=== PATIENT | male | born 1965 | race Two or more races ===

== ENCOUNTER 2019-04-03 03:15 | Emergency (ER) | payer SELFPAY ==
[~2019-04-03] VITALS: Ht 175.3 cm; Wt 77.1 kg
[~2019-04-03 03:15] MED LIST: DICY20TA3 PO; ONDA4TAB12 PO; PANT20TA2 PO
[2019-04-03 03:52] LABS: BASO # 0.1 x10^3/uL (0.0-0.2); BASO % 1 % (0-3); EOS # 0.1 x10^3/uL (0.0-0.7); EOS % 1 % (0-3); HEMATOCRIT 50.3 % (39.0-53.0); HEMOGLOBIN 17.2 g/dL (13.0-17.5); LYMPH # 2.3 x10^3/uL (1.0-4.8); LYMPH % 16 % (24-48); MEAN CORPUSCULAR HEMOGLOBIN 32 pg (25-35); MEAN CORPUSCULAR HGB CONC 34 g/dL (31-37); MEAN CORPUSCULAR VOLUME 93 fL (79-100); MONO % 8 % (0-9); NEUT # 10.2 x10^3uL (1.8-7.7); NEUT % 75 % (31-73); PLATELET COUNT 479 x10^3/uL (140-400); RED CELL DISTRIBUTION WIDTH 13.6 % (11.5-14.5); WHITE BLOOD COUNT 13.7 x10^3/uL (4.0-11.0)
[2019-04-03] MEDS ORDERED: FAMOTIDINE 20 MG/2 ML VIAL IVP ONE (04:00)
[2019-04-03] MEDS ORDERED: IV NORMAL SALINE 1000ML BAG 1,000 ML IV ONE (04:00)
[2019-04-03] MEDS ORDERED: LIDO:MAALOX 1:1 20 ML SINGLE DOSE. PO ONE (04:00)
[2019-04-03] MEDS ORDERED: ONDANSETRON PF 4 MG/2 ML VIAL. IV ONE (04:00)
[2019-04-03 04:07] LABS: CALCIUM 9.6 mg/dL (8.5-10.1); CREATININE 1.1 mg/dL (0.7-1.3); POTASSIUM 3.9 mmol/L (3.5-5.1)
[2019-04-03 04:09] LABS: ALBUMIN 4.3 g/dL (3.4-5.0); ALBUMIN/GLOBULIN RATIO 1.1 (1.0-1.7); TOTAL BILIRUBIN 1.1 mg/dL (0.2-1.0); TOTAL PROTEIN 8.3 g/dL (6.4-8.2)
--- NOTE | 2019-04-03 05:07 | PHYS DOC ---
Past Medical History Past Medical History: Gallstones (HUGH LUNSFORD DO) Past Surgical History: Appendectomy, Cholecystectomy (HUGH LUNSFORD DO) Alcohol Use: Occasionally Drug Use: Marijuana (HUGH LUNSFORD DO) Adult General Chief Complaint Chief Complaint: ABDOMINAL PAIN HPI HPI Patient is a 53 year old male who presents with epigastric abdominal pain with nausea, diarrhea, and intermittent diarrhea for 2 days. The patient admits to similar symptoms 2 weeks ago. In addition, he has experienced these symptoms on and off since his cholecystectomy in October. Denies fever/chills. Denies known trauma. Denies known sick contacts. (HUGH LUNSFORD DO) Review of Systems Review of Systems Constitutional: Denies fever or chills Eyes: Denies redness or eye pain HENT: Denies nasal congestion or sore throat Respiratory: Denies cough or shortness of breath Cardiovascular: Denies chest pain or palpitations GI: Reports epigastric abdominal pain and reports diarrhea'; denies vomiting : Denies dysuria or hematuria Musculoskeletal: Denies back pain or joint pain Integument: Denies rash or skin lesions Neurologic: Denies headache, focal weakness or sensory changes Complete systems were reviewed and found to be within normal limits, except as documented in this note. (HUGH LUNSFORD DO) Current Medications Current Medications Current Medications Medications (Trade) Dose Ordered Sig/Sandhya Start Time Stop Time Status Last Admin Dose Admin Famotidine (Pepcid Vial) 20 mg 1X ONCE 04/03/19 04:00 04/03/19 04:01 DC 04/03/19 04:39 20 MG Fentanyl Citrate (Fentanyl 2ml Vial) 50 mcg 1X ONCE 04/03/19 06:30 04/03/19 06:31 DC 04/03/19 06:38 50 MCG Info (CONTRAST GIVEN -- Rx MONITORING) 1 each PRN DAILY PRN 04/03/19 06:00 04/05/19 05:59 Iohexol (Omnipaque 300 Mg/ml) 75 ml 1X ONCE 04/03/19 06:00 04/03/19 06:01 DC 04/03/19 06:00 75 ML Ketorolac Tromethamine (Toradol 15mg Vial) 15 mg 1X ONCE 04/03/19 05:15 04/03/19 05:16 DC 04/03/19 06:38 15 MG Multi-Ingredient Mouthwash/Gargle (Gi Cocktail) 20 ml 1X ONCE 04/03/19 04:00 04/03/19 04:01 DC 04/03/19 04:39 20 ML Ondansetron HCl (Zofran) 4 mg 1X ONCE 04/03/19 04:00 04/03/19 04:01 DC 04/03/19 04:38 4 MG Sodium Chloride 1,000 ml @ 1,000 mls/hr 1X ONCE 04/03/19 04:00 04/03/19 04:59 DC 04/03/19 04:38 1,000 MLS/HR Sucralfate (Carafate) 1 gm 1X ONCE 04/03/19 05:15 04/03/19 05:16 DC 04/03/19 06:37 1 GM (LANEY LARSEN DO) Allergies Allergies Allergies Coded Allergies Type Severity Reaction Last Updated Verified No Known Drug Allergies 04/03/19 No (KEITHLYLANEY T DO) Physical Exam Physical Exam Constitutional: Well developed, well nourished, uncomfortable, non-toxic appearance HENT: Normocephalic, atraumatic, oropharynx moist Eyes: Conjunctiva normal, no discharge Neck: Normal range of motion, no tenderness, supple Cardiovascular: Heart rate normal, regular rhythm Lungs & Thorax: Bilateral breath sounds clear to auscultation, no wheezing Abdomen: Soft, epistaric tenderness on palpation, no guarding/distention/rebound tenderness Skin: Warm, dry, no erythema, no rash Extremities: No tenderness, ROM intact, no edema Neurologic: Alert and oriented X 3, no focal deficits noted Psychologic: Affect normal, judgement normal, mood normal (HUGH LUNSFORD DO) Current Patient Data Vital Signs Vital Signs Date Time Temp Pulse Resp B/P (MAP) Pulse Ox O2 Delivery O2 Flow Rate FiO2 04/03/19 03:25 97.9 113 20 143/107 (119) 99 Room Air 97.9 (AMANDA LARSENINA Shanique DELGADO) Lab Values Laboratory Tests Test 04/03/19 03:40 04/03/19 04:55 White Blood Count 13.7 x10^3/uL (4.0-11.0) H Red Blood Count 5.40 x10^6/uL (4.30-5.70) Hemoglobin 17.2 g/dL (13.0-17.5) Hematocrit 50.3 % (39.0-53.0) Mean Corpuscular Volume 93 fL (79-100) Mean Corpuscular Hemoglobin 32 pg (25-35) Mean Corpuscular Hemoglobin Concent 34 g/dL (31-37) Red Cell Distribution Width 13.6 % (11.5-14.5) Platelet Count 479 x10^3/uL (140-400) H Neutrophils (%) (Auto) 75 % (31-73) H Lymphocytes (%) (Auto) 16 % (24-48) L Monocytes (%) (Auto) 8 % (0-9) Eosinophils (%) (Auto) 1 % (0-3) Basophils (%) (Auto) 1 % (0-3) Neutrophils # (Auto) 10.2 x10^3uL (1.8-7.7) H Lymphocytes # (Auto) 2.3 x10^3/uL (1.0-4.8) Monocytes # (Auto) 1.0 x10^3/uL (0.0-1.1) Eosinophils # (Auto) 0.1 x10^3/uL (0.0-0.7) Basophils # (Auto) 0.1 x10^3/uL (0.0-0.2) Sodium Level 137 mmol/L (136-145) Potassium Level 3.9 mmol/L (3.5-5.1) Chloride Level 99 mmol/L (98-107) Carbon Dioxide Level 27 mmol/L (21-32) Anion Gap 11 (6-14) Blood Urea Nitrogen 15 mg/dL (8-26) Creatinine 1.1 mg/dL (0.7-1.3) Estimated GFR (Cockcroft-Gault) 70.0 BUN/Creatinine Ratio 14 (6-20) Glucose Level 133 mg/dL (70-99) H Calcium Level 9.6 mg/dL (8.5-10.1) Total Bilirubin 1.1 mg/dL (0.2-1.0) H Aspartate Amino Transferase (AST) 13 U/L (15-37) L Alanine Aminotransferase (ALT) 23 U/L (16-63) Alkaline Phosphatase 78 U/L (46-116) Troponin I Quantitative < 0.017 ng/mL (0.000-0.055) Total Protein 8.3 g/dL (6.4-8.2) H Albumin 4.3 g/dL (3.4-5.0) Albumin/Globulin Ratio 1.1 (1.0-1.7) Lipase 199 U/L (73-393) Stool Occult Blood Positive (NEG) Laboratory Tests 04/03/19 03:40 Laboratory Tests 04/03/19 03:40 (LANEY LARSEN DO) EKG EKG 04/03/2019 @04:48 Normal Sinus Rhythm at 63bpm. No ST elevations. (HUGH LUNSFORD DO) Radiology/Procedures Radiology/Procedures [] (HUGH LUNSFORD DO) Course & Med Decision Making Course & Med Decision Making Patient is a 53 year old male who presents with epigastric abdominal pain with nausea and diarrhea, Symptomatic treatment provided. IVF hydration given. Labs obtained and pending. CT abd/pelvis also pending. Sign out given to Dr. Larsen for further evaluation and final disposition. Discussed current findings and plan with patient and family, who acknowledges understanding and agreement. (HUGH LUNSFORD DO) Course & Med Decision Making 0653: BILLIE from Dr. Lunsford at 0600. CT as above consistent with gastritis. Stool occult positive, stable Hg, stable vital signs. Symptoms controlled on my evaluation. pt reports waxing/waning symptoms for a few weeks but constant/increased pain over the past [address] on Pepcid/Protonix/carafate. Counseled on NSAID avoidance. Labs and CT discussed in detail with patient Will also refer to GI. ER return precautions given. Patient verbalized understanding. All questions answered. (LANEY LARSEN DO) Dragon Disclaimer Dragon Disclaimer This electronic medical record was generated, in whole or in part, using a voice recognition dictation system. (HUGH LUNSFORD DO) Departure Departure Impression: Primary Impression: Abdominal pain Additional Impression: Gastritis Disposition: 01 HOME, SELF-CARE Condition: IMPROVED Referrals: NO PCP (PCP) ELIESER FUENTES MD Patient Instructions: Gastritis, Adult Additional Instructions: Thank you for coming to [facility]. Please read the attached handouts. Please follow-up with your primary care physician. Return to the ER if your symptoms worsen or you have any other concerns. Do not take any ibuprofen or Aleve. Please eat a bland diet. Please do not drink any alcohol while having symptoms. Please take the medications as prescribed. Take the controlled substance for uncontrolled pain. Do not exceed 4000 mg of acetaminophen/Tylenol 24-hour period. Follow-up with the referred GI doctor. Scripts Famotidine (PEPCID) 20 Mg Tablet 20 MG PO BID for 30 Days, #60 TAB Prov: LANEY LARSEN DO 04/03/19 Pantoprazole Sodium (PROTONIX) 20 Mg Tablet.dr 1 TAB PO DAILY, #30 TAB Prov: LANEY LARSEN DO 04/03/19 Sucralfate (CARAFATE) 1 Gm Tablet 1 TAB PO QID, #120 TAB 1 Refill Prov: LANEY LARSEN DO 04/03/19 Hydrocodone/Apap 5-325 (NORCO 5-325 TABLET) 1 Each Tablet 1-2 EACH PO PRN Q6HRS PRN for PAIN, #20 as needed for pain Prov: LANEY LARSEN DO 04/03/19 Problem Qualifiers Primary Impression: Abdominal pain Abdominal location: epigastric Qualified Codes: R10.13 - Epigastric pain HUGH LUNSOFRD DO Apr 03, 2019 05:07 LANEY LARSEN DO Apr 03, 2019 07:01
[2019-04-03 05:14] LABS: FECAL OB PT POSITIVE (NEG)
[2019-04-03] MEDS ORDERED: SUCRALFATE 1 GM TABLET. PO ONE (05:15)
[2019-04-03] MEDS ORDERED: KETOROLAC 15 MG/ML VIAL. IV ONE (05:15)
[2019-04-03] MEDS ORDERED: CONTRAST GIVEN. MC PRN (06:00)
[2019-04-03] MEDS ORDERED: IOHEXOL 300 MG/ML 100ML VIAL. IV ONE (06:00)
[2019-04-03] MEDS ORDERED: fentaNYL PF VIAL 100 MCG/2 ML VIAL IV ONE (06:30)
--- NOTE | 2019-04-03 06:30 | RAD ---
PQRS Compliance Statement: One or more of the following individualized dose reduction techniques were utilized for this examination: 1. Automated exposure control 2. Adjustment of the mA and/or kV according to patient size 3. Use of iterative reconstruction technique CT abdomen/pelvis with contrast 04/03/2019 5:38 AM INDICATION: Epigastric abdominal pain COMPARISON: None available TECHNIQUE: Multiple axial CT images of the abdomen and pelvis were obtained after the intravenous administration of 75 mL Omnipaque 300. Coronal and sagittal reformats are provided. FINDINGS: Lung bases are clear. Heart size within normal limits. Liver, spleen, bilateral adrenal glands and pancreas are normal in appearance. Gallbladder is surgically absent. The abdominal aorta is normal in course and caliber. There are no pathologically enlarged lymph nodes in the abdomen and pelvis. There is no abdominal free fluid. There is no free intraperitoneal air. The kidneys enhance symmetrically. There is no suspicious renal mass. There is no hydronephrosis. There are no suspected calculi within the kidneys, ureters or urinary bladder. Small and large bowel are normal in caliber. There is no evidence for bowel obstruction. There are no pericolonic inflammatory changes. Appendix is surgically absent. There is, wall thickening with mural edema and perigastric inflammatory changes compatible with gastritis. Urinary bladder is within normal limits given degree of distention. Prostate and seminal vesicles appear normal. No suspicious osseous amount is identified. IMPRESSION: Constellation of findings is suggestive of gastritis with gastric wall thickening and perigastric inflammatory changes. Electronically signed by: Tammie Stewart MD (04/03/2019 6:27 AM) [facility]
[2019-04-03] MEDS ORDERED: HYDR-3164 PO (07:00)
[2019-04-03] MEDS ORDERED: PANT20TA2 PO (07:00)
[2019-04-03] MEDS ORDERED: FAMO-63 PO (07:00)
[2019-04-03] MEDS ORDERED: SUCR1TAB35 PO (07:00)
[2019-04-03 07:08] VITALS: BP 112/59
--- NOTE | 2019-04-03 07:33 | EKG ---
[facility] [address] [place] [address] Test Date: 2019-04-03 Test Time: 04:48:06 Pat Name: CHEYENNE ORTEGA Department: Room: Gender: M [employer]: : 1965 Requested By: HUGH LUNSFORD Order Number: [id number] Reading MD: Measurements Intervals [place] Rate: 63 P: 49 DE: 138 QRS: 64 QRSD: 84 T: 62 QT: 392 QTc: 404 Interpretive Statements SINUS RHYTHM QRS(T) CONTOUR ABNORMALITY CONSIDER ANTEROSEPTAL MYOCARDIAL DAMAGE POSSIBLY ABNORMAL ECG RI6.01 No previous ECG available for comparison
== END 2019-04-03 07:09 | disposition home or self-care (01) ==
LOC: ER 03:15
DX: K29.60 Other gastritis without bleeding (principal); R19.7 Diarrhea, unspecified; Z90.89 Acquired absence of other organs; Z90.49 Acquired absence of other specified parts of digestive tract
CPT/HCPCS: 36415; 74177; 80053; 82274; 83690; 84484; 85025; 93005; 96361; 96374; 96375; 99285; J1885; J2405; J3010; J3490; J7030; Q9967